=== PATIENT | female | born 1960 | race American Indian/Alaskan Native ===

== ENCOUNTER 2019-08-02 01:51 | Inpatient (IN) | payer MEDICAID ==
[2019-08-02 03:10] LABS: Basophils # (Auto) 0.1 K/mm3 (0.0-0.1); Basophils % (Auto) 0.5 % (0.0-1.8); Eosinophils % (Auto) 0.3 % (0.0-4.3); Hematocrit 34.2 % (30.3-42.9); Hemoglobin 11.5 gm/dl (10.1-14.3); Lymphocytes % (Auto) 19.2 % (13.4-35.0); Mean Corpuscular HGB Conc 34 % (30-34); Mean Corpuscular Volume 105 fl (79-97); Monocytes # (Auto) 0.7 K/mm3 (0.0-0.8); Monocytes % (Auto) 4.3 % (0.0-7.3); Platelet Count 370 K/mm3 (140-440); Red Blood Count 3.26 M/mm3 (3.65-5.03); Red Cell Distribution Width 18.7 % (13.2-15.2)
[2019-08-02 03:35] LABS: Alanine Aminotransferase 22 units/L (7-56); Albumin 3.3 g/dL (3.9-5); BUN/Creatinine Ratio 5; Blood Urea Nitrogen 9 mg/dL (7-17); Hemolysis Index 11
--- NOTE | 2019-08-02 03:35 | XRay Report ---
CHEST 2 VIEWS INDICATION / CLINICAL INFORMATION: Chest Pain. COMPARISON: None available. FINDINGS: SUPPORT DEVICES: None. HEART / MEDIASTINUM: No significant abnormality. LUNGS / PLEURA: No significant pulmonary or pleural abnormality. No pneumothorax. ADDITIONAL FINDINGS: No significant additional findings. IMPRESSION: 1. No acute findings. Signer Name: Cordell Crowell MD Signed: 08/02/2019 3:31 AM Workstation Name: [id number]
[2019-08-02 03:46] LABS: Calcium 4.8 mg/dL (8.4-10.2)
[2019-08-02] MEDS ORDERED: NACL 0.9% 1000 ML 1,000 ML ONE (04:15)
[2019-08-02] MEDS ORDERED: MORPHINE IV ONE (04:26)
[2019-08-02] MEDS ORDERED: K-DUR PO ONE ×2 (04:26→10:30)
[2019-08-02] MEDS ORDERED: CALCIUM GLUCONATE 2,000 MG in NACL 0.9% 100 ML IV ONE (04:26)
[2019-08-02] MEDS ORDERED: ZOFRAN IV ONE (04:26)
[2019-08-02] MEDS ORDERED: MAGNESIUM SULFATE 4GM/100ML 4 GM/100 ML BAG IV ONE (04:26)
[2019-08-02] MEDS ORDERED: TUMS PO ONE (04:26)
[2019-08-02] MEDS ORDERED: PEPCID IV ONE (04:27)
--- NOTE | 2019-08-02 04:32 | Emergency Department Report ---
ED General Adult HPI - General Chief complaint: Chest Pain Stated complaint: CHEST PAIN Time Seen by Provider: 08/02/19 03:13 Source: patient, RN notes reviewed Mode of arrival: Ambulatory Limitations: No Limitations - History of Present Illness Initial comments: This is a pleasant 59-year-old female. This patient is not known to this provider previously. She does not have a local primary care doctor. 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 She endorses a history of Crohn's disease. Was previously treated for Crohn's disease in [facility]. This was over a decade ago. She is not taking any medications at this time. She presents to the ER with a complaint of malaise, fatigue, numbness, weakness, lightheadedness. She endorses constant diarrhea. It is nonbloody. She endorses intermittent nausea and vomiting, and difficulty eating and drinking. After nausea and vomiting, she has central chest pain that radiates to the back. She endorses no urinary symptoms. She denies severe headache. She denies neck pain. The patient endorses no hematemesis or bright red blood per rectum. Symptoms intermittent over the past couple weeks, getting worse, and they don't really have any exacerbating or relieving factors. -: Gradual Location: chest, back, abdomen Severity scale (0 -10): 6 Quality: aching Improves with: other Worsens with: other - Related Data Allergies Allergy/AdvReac Type Severity Reaction Status Date / Time latex Allergy Unknown Verified 08/02/19 01:55 ED Review of Systems ROS: Stated complaint: CHEST PAIN Other details as noted in HPI Constitutional: malaise. denies: fever Eyes: denies: eye discharge, vision change ENT: denies: epistaxis Respiratory: denies: cough, wheezing Cardiovascular: chest pain. denies: syncope Gastrointestinal: abdominal pain, nausea, diarrhea. denies: constipation, hematemesis, melena, hematochezia Genitourinary: denies: dysuria Musculoskeletal: arthralgia, myalgia Skin: denies: lesions Neurological: weakness, numbness, paresthesias ED Past Medical Hx - Past Medical History Previous Medical History?: Yes Hx Renal Disease: Yes Hx Arthritis: Yes (Osteo) Additional medical history: Crohns disease - Surgical History Past Surgical History?: No - Social History Smoking Status: Never Smoker ED Physical Exam - General Limitations: No Limitations General appearance: alert, anxious - Head Head exam: Present: atraumatic, normocephalic - Eye Eye exam: Present: normal appearance, PERRL, EOMI, other (visual acuity intact to color perception and breathing at a close distance). Absent: nystagmus - ENT ENT exam: Present: normal exam, mucous membranes dry, normal external ear exam - Neck Neck exam: Present: normal inspection, full ROM. Absent: tenderness, meningismus - Respiratory Respiratory exam: Present: normal lung sounds bilaterally. Absent: respiratory distress - Cardiovascular Cardiovascular Exam: Present: regular rate, normal rhythm, normal heart sounds. Absent: bradycardia, tachycardia, irregular rhythm, systolic murmur, diastolic murmur, rubs, gallop - GI/Abdominal GI/Abdominal exam: Present: soft. Absent: distended, tenderness, guarding, rebound, rigid, pulsatile mass - Extremities Exam Extremities exam: Present: normal inspection, full ROM, other (2+ pulses noted in the bilateral upper, lower extremities. Compartments soft. No long bony tenderness. The pelvis is stable.). Absent: pedal edema, calf tenderness - Back Exam Back exam: Present: normal inspection, full ROM. Absent: tenderness, CVA tenderness (R), CVA tenderness (L), paraspinal tenderness, vertebral tenderness - Neurological Exam Neurological exam: Present: alert, oriented X3, other (Extraocular movements intact. Tongue midline. No facial droop. Facial sensation intact to light touch in the V1, V2, V3 distribution bilaterally. 5 and 5 strength in 4 extremi ties.. Sensation is intact to light touch in 4 extremities.). Absent: motor sensory deficit - Psychiatric Psychiatric exam: Present: anxious - Skin Skin exam: Present: warm, dry, intact, normal color. Absent: rash ED Course Vital Signs 08/02/19 08/02/19 08/02/19 01:58 02:09 03:37 Temperature 97.6 F 97.6 F 97.7 F Pulse Rate 95 H 95 H 88 Respiratory 16 18 12 Rate Blood Pressure 111/68 111/68 Blood Pressure 98/67 [Left] O2 Sat by Pulse 100 95 100 Oximetry 08/02/19 08/02/19 05:40 05:50 Temperature Pulse Rate 83 86 Respiratory 15 16 Rate Blood Pressure 88/51 78/43 Blood Pressure [Left] O2 Sat by Pulse 100 100 Oximetry - Reevaluation(s) Reevaluation #1: 08/02/19 05:23 Differential diagnosis, including but not limited to: Crohn's disease, Crohn's flare, dysphasia, malnutrition, dehydration, electrolyte derangement, GERD, gastritis Assessment and plan: 59-year-old female with history of Crohn's disease, not on any maintenance medication at this time, with complaint of diarrhea, abdominal cramping, difficulty eating and drinking, with evidence of malnutrition and dehydration, manifest by hypokalemia, hypocalcemia, hypomagnesemia, and poor oral intake. We'll treat her symptoms with pain medication, nausea medication, IV fluids, and we will correct her electrolyte derangement. Reports no DVT or pulmonary embolus risk factors. She is currently not tachycardic or hypoxic, and she is not tachypneic. Chest pain present for days to weeks, mostly associ ated with swallowing, suspect GI etiology. CT scan of the abdomen and pelvis performed. Interpretation pending. Advised patient that we would recommend admission to the hospital for correction of aforementioned derangement, once initial diagnostics have resulted. Patient and family amenable to this plan of care. Reevaluation #2: 08/02/19 05:38 CT scan of the abdomen and pelvis suggests Crohn's disease as expected, no acute surgical condition is identified. Gastroenterology production operator paged, hospitalist physician production operator paged. Reevaluation #3: 08/02/19 06:03 Discussed with gastroenterology, Dr. Nance, who recommends 125 mg Solu-Medrol IV. He indicates he will see the patient within the next couple hours, and make further recommendations. Hospital physician, Dr. Posada, to admit patient to the medical service. - EJ/Peripheral Line Neck L Time Out Performed: Yes Indications: multiple IV sites needed Skin Cleansed in Sterile Fashion: Yes Size: 20 Dressing Placed: Tegaderm Patient Tolerated Procedure: well ED Medical Decision Making - Lab Data Result diagrams: 08/02/19 02:49 08/02/19 02:49 Vital Signs 08/02/19 08/02/19 08/02/19 01:58 02:09 03:37 Temperature 97.6 F 97.6 F 97.7 F Pulse Rate 95 H 95 H 88 Respiratory 16 18 12 Rate Blood Pressure 111/68 111/68 Blood Pressure 98/67 [Left] O2 Sat by Pulse 100 95 100 Oximetry Lab Results 08/02/19 08/02/19 08/02/19 Range/Units 02:49 02:49 03:13 WBC 15.5 H (4.5-11.0) K/mm3 RBC 3.26 L (3.65-5.03) M/mm3 Hgb 11.5 (10.1-14.3) gm/dl Hct 34.2 (30.3-42.9) % MCV 105 H (79-97) fl MCH 35 H (28-32) pg MCHC 34 (30-34) % RDW 18.7 H (13.2-15.2) % Plt Count 370 (140-440) K/mm3 Lymph % (Auto) 19.2 (13.4-35.0) % Wilkes % (Auto) 4.3 (0.0-7.3) % Eos % (Auto) 0.3 (0.0-4.3) % Baso % (Auto) 0.5 (0.0-1.8) % Lymph # 3.0 (1.2-5.4) K/mm3 Wilkes # 0.7 (0.0-0.8) K/mm3 Eos # 0.0 (0.0-0.4) K/mm3 Baso # 0.1 (0.0-0.1) K/mm3 Seg Neutrophils % 75.7 H (40.0-70.0) % Seg Neutrophils # 11.7 H (1.8-7.7) K/mm3 Sodium 136 L (137-145) mmol/L Potassium 2.2 L* (3.6-5.0) mmol/L Chloride 101.1 (98-107) mmol/L Carbon Dioxide 13 L (22-30) mmol/L Anion Gap 24 mmol/L BUN 9 (7-17) mg/dL Creatinine 2.0 H (0.7-1.2) mg/dL Estimated GFR 31 ml/min BUN/Creatinine Ratio 5 % Glucose 85 (65-100) mg/dL Calcium 4.8 L* (8.4-10.2) mg/dL Magnesium 0.60 L* (1.7-2.3) mg/dL Total Bilirubin 0.70 (0.1-1.2) mg/dL AST 35 (5-40) units/L ALT 22 (7-56) units/L Alkaline Phosphatase 111 (35-129) units/L Total Creatine Kinase 1172 H (30-135) units/L Troponin T < 0.010 (0.00-0.029) ng/mL Total Protein 5.9 L (6.3-8.2) g/dL Albumin 3.3 L (3.9-5) g/dL Albumin/Globulin Ratio 1.3 % - EKG Data -: EKG Interpreted by Me EKG shows normal: sinus rhythm Rate: normal - EKG Data When compared to previous EKG there are: previous EKG unavailable 08/02/19 05:22 There is no prior EKG available for comparison. This is a sinus rhythm, 90 bpm, QTC prolonged, motion artifact, low voltage, the EKG is abnormal, the EKG is not consistent with ST elevation myocardial infarction. - Radiology Data Radiology results: pending, report reviewed, image reviewed interpreted by me: X-ray of the chest is negative for acute disease. A chest is negative for acute disease. Referring Physician: CASSIE SANDOVAL Patient Name: SHANEL NANCE Date of : 1960 Sex: Female Report Date: 2019-08-02 Report Status: [place] [address] Cat Scan Report Signed Patient: SHANEL NANCE MR#: [id number] 4 : 1960 Acct:[id number] Age/Sex: 59 / F ADM Date: 08/02/19 Loc: ED Attending Dr: Ordering Physician: CASSIE SANDOVAL MD Date of Service: 08/02/19 Procedure(s): CT abdomen pelvis w con Accession Number(s): [id number] cc: CASSIE SANDOVAL MD CT ABDOMEN AND PELVIS WITH CONTRAST INDICATION: chrones flare abd pain. TECHNIQUE: Axial CT images were obtained through the abdomen and pelvis after 100 cc Omnipaque [address] scans at this location are performed using CT dose reduction for ALARA by means of automated exposure control. COMPARISON: None available. FINDINGS: LOWER CHEST: Mild pulmonary emphysema. Visualized lung bases are otherwise clear. LIVER: Moderate decreased attenuation within liver characteristic for steatosis. GALLBLADDER: Cholelithiasis. BILE DUCTS: No significant abnormality. PANCREAS: No significant abnormality. SPLEEN: No significant abnormality. ADRENALS: No significant abnormality. RIGHT KIDNEY and URETER: No significant abnormality. Tiny 1 cm cyst LEFT KIDNEY and URETER: No significant abnormality. Tiny 1 cm cyst STOMACH and SMALL BOWEL: Several loops of distal small bowel with moderate bowel wall thickening suggestive for Crohn's disease. COLON: Ahaustral appearance of colon with mild diffuse colonic wall thickening with marked wall thickening of transverse colon characteristic for inflammatory bowel disease such as Crohn's. APPENDIX: No significant abnormality. PERITONEUM: No free fluid. No free air. No fluid collection. LYMPH NODES: No significant adenopathy. AORTA and ARTERIES: No significant abnorm ality. IVC and VEINS: No significant abnormality. URINARY BLADDER: No significant abnormality. REPRODUCTIVE ORGANS: Several small partially calcified uterine leiomyomas, largest of which measures 1.7 cm within the right uterine body image 128. ADDITIONAL FINDINGS: None. SKELETAL SYSTEM: Moderate left-sided sacroiliitis. 3. Mild emphysema IMPRESSION: 1. Marked thickening of transverse colon with moderate bowel wall thickening of multiple loops of small bowel and mild colonic wall thickening c haracteristic for inflammatory bowel disease such as Crohn's. No bowel obstruction. 2. Cholelithiasis. 3. Leiomyomatous uterus and moderate steatosis. Signer Name: Cordell Crowell MD Signed: 08/02/2019 5:27 AM Workstation Name: [id number] Transcribed By: TL Dictated By: Cordell Crowell MD Elect ronically Authenticated By: Cordell Crowell MD Signed Date/Time: 08/02/19 0538 Critical Care Time: Yes Critical care time in (mins) excluding proc time.: 35 Critical care attestation.: If time is entered above; I have spent that time in minutes in the direct care of this critically ill patient, excluding procedure time. ED Disposition Clinical Impression: Crohn disease, Hypokalemia, Hypomagnesemia, Hypocalcemia, Myositis, Diarrhea Disposition: OP ADMIT IP TO THIS HOSP Is pt being admited?: Yes Does the pt Need Aspirin: No Condition: Serious Referrals: PRIMARY CARE, [Primary Care Provider] - 3-5 Days Forms: Accompanied Note
[2019-08-02] MEDS ORDERED: NACL 0.9% 1000 ML 1,000 ML IV ONE ×2 (04:44→06:20)
--- NOTE | 2019-08-02 05:32 | Cat Scan Report ---
CT ABDOMEN AND PELVIS WITH CONTRAST INDICATION: chrones flare abd pain. TECHNIQUE: Axial CT images were obtained through the abdomen and pelvis after 100 cc Omnipaque [address] scans at this location are performed using CT dose reduction for ALARA by means of automated exposure control. COMPARISON: None available. FINDINGS: LOWER CHEST: Mild pulmonary emphysema. Visualized lung bases are otherwise clear. LIVER: Moderate decreased attenuation within liver characteristic for steatosis. GALLBLADDER: Cholelithiasis. BILE DUCTS: No significant abnormality. PANCREAS: No significant abnormality. SPLEEN: No significant abnormality. ADRENALS: No significant abnormality. RIGHT KIDNEY and URETER: No significant abnormality. Tiny 1 cm cyst LEFT KIDNEY and URETER: No significant abnormality. Tiny 1 cm cyst STOMACH and SMALL BOWEL: Several loops of distal small bowel with moderate bowel wall thickening sugg estive for Crohn's disease. COLON: Ahaustral appearance of colon with mild diffuse colonic wall thickening with marked wall thick ening of transverse colon characteristic for inflammatory bowel disease such as Crohn's. APPENDIX: No significant abnormality. PERITONEUM: No free fluid. No free air. No fluid collection. LYMPH NODES: No significant adenopathy. AORTA and ARTERIES: No significant abnormality. IVC and VEINS: No significant abnormality. URINARY BLADDER: No significant abnormality. REPRODUCTIVE ORGANS: Several small partially calcified uterine leiomyomas, largest of which measures 1.7 cm within the right uterine body image 128. ADDITIONAL FINDINGS: None. SKELETAL SYSTEM: Moderate left-sided sacroiliitis. 3. Mild emphysema IMPRESSION: 1. Marked thickening of transverse colon with moderate bowel wall thickening of multiple loops of sma ll bowel and mild colonic wall thickening characteristic for inflammatory bowel disease such as Crohn 's. No bowel obstruction. 2. Cholelithiasis. 3. Leiomyomatous uterus and moderate steatosis. Signer Name: Cordell Crowell MD Signed: 08/02/2019 5:27 AM Workstation Name: [id number]
[2019-08-02] MEDS ORDERED: SUBLIMAZE IV ONE (05:40)
[2019-08-02] MEDS ORDERED: NACL 0.9% 1000 ML 2,000 ML IV ONE (05:40)
[2019-08-02] MEDS: KCL 10MEQ/100ML 10 MEQ/100 ML BAG IV SCH ×6 (05:45→18:01)
[2019-08-02] MEDS ORDERED: SOLU-Medrol IV ONE (06:02)
[2019-08-02] MEDS ORDERED: TYLENOL PO PRN (06:16)
[2019-08-02] MEDS ORDERED: ZOFRAN IV PRN (06:16)
[2019-08-02] MEDS ORDERED: SODIUM CHLORIDE FLUSH SYRINGE 10 ML IV PRN (06:16)
--- NOTE | 2019-08-02 06:26 | History and Physical Report ---
History of Present Illness Date of examination: 08/02/19 History of present illness: 59-year-old woman with a history of Crohn's comes emergency room for evaluation. Over the last 3 weeks she has been having diarrhea, 4-5 episodes a day, nonbloody, also complain of generalized weakness, nausea vomiting, numbness and tingling in her hands. No abdominal pain. Also complain of chest pain in the epigastric area 2 weeks which she describes a tightness, intermittent every half an hour, intensity follow 10, radiating to the left underarm, candidate and exacerbating or relieving factors, no previous stress tests, no shortness of breath, diaphoresis or palpitation eview Of Systems: Constitutional: no weight loss, fever, chills Ears, eyes, nose, mouth and throat: no nasal congestion, no nasal discharge, no sinus pressure, blurry vision, diplopia Neck: No neck pain or rigidity. Cardiovascular: No palpitations Respiratory: No shortness of breath, cough Gastrointestinal: No hematochezia, abdominal pain Genitourinary : no dysuria, frequency , hematuria Musculoskeletal: no muscle ache , joint pain Integumentary: no rash, no pruritis Neurological: no parathesias, focal weakness Endocrine: no cold or heat intolerance, no polyuria or polydipsia Hematologic/Lymphatic: no easy bruising, no easy bleeding, no gland swelling Allergic/Immunologic: no urticaria, no angioedema. PAST MEDICAL HISTORY: Crohn's disease PAST SURGICAL HISTORY:part of the gut removed, colostomy with reversal FAMILY HISTORY:hypertension, diabetes SOCIAL HISTORY: Denies tobacco, drugs, alcohol Medications and Allergies Allergies Allergy/AdvReac Type Severity Reaction Status Date / Time latex Allergy Unknown Verified 08/02/19 01:55 Home Medications Medication Instructions Recorded Confirmed Last Taken Type No Known Home Medications [No 08/02/19 08/02/19 Unknown History Reported Home Medications] Active Meds: Active Medications Acetaminophen (Tylenol) 650 mg PO Q4H PRN PRN Reason: Pain MILD(1-3)/Fever >100.5/INFANTE Enoxaparin Sodium (Lovenox) 30 mg SUB-Q QDAY MAGNUS Magnesium Sulfate (Magnesium Sulfate 4gm/100ml) 4 gm in 100 mls @ 25 mls/hr IV ONCE ONE Stop: 08/02/19 08:25 Last Admin: 08/02/19 05:45 Dose: 25 mls/hr Documented by: Potassium Chloride (Kcl 10meq/100ml) 10 meq in 100 mls @ 100 mls/hr IV Q1H MAGNUS Stop: 08/02/19 08:59 Last Admin: 08/02/19 05:45 Dose: 100 mls/hr Documented by: Sodium Chloride (Nacl 0.9% 1000 Ml) 1,000 mls @ 150 mls/hr IV DIRECT MAGNUS Sodium Chloride (Nacl 0.9% 1000 Ml) 1,000 mls @ 999 mls/hr IV ONCE ONE Stop: 08/02/19 07:20 Ondansetron HCl (Zofran) 4 mg IV Q8H PRN PRN Reason: Nausea And Vomiting Oxycodone/Acetaminophen (Percocet 5/325) 1 tab PO Q6H PRN PRN Reason: Pain, Moderate (4-6) Sodium Chloride (Sodium Chloride Flush Syringe 10 Ml) 10 ml IV BID MAGNUS Sodium Chloride (Sodium Chloride Flush Syringe 10 Ml) 10 ml IV PRN PRN PRN Reason: LINE FLUSH Exam - Physical Exam Narrative exam: General Apperance: The patient sitting in bed no acute distress HEENT: Normocephalic, atraumatic. Pupils equally round and reactive to light, extraocular movement intact, and no sclericterus or JVD or thyromegaly or nodule. Neck supple, no carotid bruit, mucous membranes dry, no exudate or e rythema Heart: S1-S2, regular is rhythm Lungs: Clear to auscultation bilaterally, breathing comfortable Abdomen: Positive bowel sounds, soft, nontender, nondistended, no organomegaly Extremities: No edema cyanosis clubbing Skin: no rash, nodule, warm and dry Neuro:CN 2 -12 intact, motor/sensory intact, speech is fluent - Constitutional Vitals: Temp Pulse Resp BP Pulse Ox 97.7 F 86 16 78/43 100 08/02/19 03:37 08/02/19 05:50 08/02/19 05:50 08/02/19 05:50 08/02/19 05:50 Results - Labs CBC & Chem 7: 08/02/19 02:49 08/03/19 06:24 Labs: Abnormal lab results 09/04/19 09/04/19 09/04/19 Range/Units 02:49 02:49 03:13 WBC 15.5 H (4.5-11.0) K/mm3 RBC 3.26 L (3.65-5.03) M/mm3 MCV 105 H (79-97) fl MCH 35 H (28-32) pg RDW 18.7 H (13.2-15.2) % Seg Neutrophils % 75.7 H (40.0-70.0) % Seg Neutrophils # 11.7 H (1.8-7.7) K/mm3 Sodium 136 L (137-145) mmol/L Potassium 2.2 L* (3.6-5.0) mmol/L Carbon Dioxide 13 L (22-30) mmol/L Creatinine 2.0 H (0.7-1.2) mg/dL Calcium 4.8 L* (8.4-10.2) mg/dL Magnesium 0.60 L* (1.7-2.3) mg/dL Total Creatine Kinase 1172 H (30-135) units/L Total Protein 5.9 L (6.3-8.2) g/dL Albumin 3.3 L (3.9-5) g/dL - Imaging and Cardiology CT scan - abdomen: report reviewed CT scan - pelvis: report reviewed Assessment and Plan Assessment cute renal failure Diarrhea Multiple electrolytes abnormalities Hypokalemia Hypomagnesemia Hypokalemia Chest pain Rhabdomyoma lysis Crohn's disease Plan Admit to medicine Follow-up electrolytes, check phosphorus Checkcardiac enzymes, stress test GI consulted to see the patient, recommended one dose of steroid at this time Stool studies, start IV fluid DVT prophylaxis
[2019-08-02 07:51] LABS: Creatine Kinase MB 16.1 ng/mL (0.0-4.0)
[2019-08-02 10:17] LABS: Albumin 2.7 g/dL (3.9-5)
[2019-08-02 10:26] LABS: Calcium 5.2 mg/dL (8.4-10.2)
[2019-08-02] MEDS: LOVENOX SUB-Q SCH (11:22)
[2019-08-02] MEDS: SODIUM CHLORIDE FLUSH SYRINGE 10 ML IV SCH ×2 (11:29→21:40)
[2019-08-02 14:16] LABS: Creatine Kinase MB 18.3 ng/mL (0.0-4.0)
[2019-08-02] MEDS: SOLU-Medrol IV SCH ×2 (16:26→21:40)
--- NOTE | 2019-08-02 16:27 | Event Note ---
Date: 08/02/19 Patient seen and examined 59-year-old woman with a history of Crohn's comes emergency room for evaluation of 3 weeks of diarrhea, 4-5 episodes a day, nonbloody, also complain of generalized weakness, nausea vomiting, numbness and tingling in her hands. Multiple electrolytes abnormalities on blood work. cont to replete elctrolytes, serial BMP c/o difficulty swallowing - consult Speech
[2019-08-02] MEDS: PERCOCET 5/325 PO PRN (16:48)
[2019-08-02] MEDS: NACL 0.9% 1000 ML 1,000 ML IV SCH (19:39)
[2019-08-03] MEDS ORDERED: K-DUR PO ONE (01:19)
--- NOTE | 2019-08-03 02:51 | Consultation ---
REFERRING PHYSICIAN: Lorene Perkins MD. INDICATION: 1. Abdominal pain. 2. Crohn's disease. HISTORY OF PRESENT ILLNESS: The patient is a 59-year-old black female with a history of Crohn's disease, who reportedly has had two surgery with resections of a small bowel in the past with one sounded like a bowel obstruction, now presents for GI evaluation. The patient reports she had a colostomy in the past with reversal about 7 years ago. She reports the last time she was followed by social media analyst was approximately 6 years ago and reports she was on Pentasa and another medicine that she does not recall, but she thinks it was not an immunomodulator. She reports over the last 2-3 weeks, she has been having loose nonbloody stools from her baseline 1-2 to 6-7 as well as abdominal cramping, musculoskeletal pain, and other symptoms. She also reports some epigastric pain. She reports a 12-pound weight loss over recent months. The patient subsequently came to the Emergency Room where she had a CT scan showing signs of Crohn's disease and was admitted and GI consulted. She denies any other specific complaints. PAST MEDICAL HISTORY: Crohn's disease. PAST SURGICAL HISTORY: Reported ostomy in the past, now reversed. ALLERGIES: No known drug allergies. MEDICATIONS: Reviewed and updated in chart. SOCIAL HISTORY: Denies alcohol, tobacco, or drug abuse. FAMILY HISTORY: Negative for colon cancer, IBD, or liver disease. REVIEW OF SYSTEMS: GENERAL: Reports some weakness. HEENT: No visual complaints or tinnitus. PULMONARY: No shortness of breath. No cough. No chest pain. GASTROINTESTINAL: Reports some loose stools and epigastric pain. All points of 13-point review of systems otherwise negative. PHYSICAL EXAMINATION: VITAL SIGNS: Temperature of 98.7, pulse 71, respirations 20, blood pressure 112/63. GENERAL: Fairly thin black female in no acute distress. HEENT: Pupils equal, round and reactive. PULMONARY: Clear to auscultation bilaterally. CARDIOVASCULAR: Regular rhythm. Normal S1, S2. ABDOMEN: Positive bowel sounds, soft. SKIN: No obvious rashes. LABORATORY DATA: Pertinent for white count of 15.5, hemoglobin and hematocrit of 11.5 and 34.2, platelet count of 370. Chem-7 is pertinent for sodium of 136, potassium 2.2, chloride 101, CO2 of 30, BUN and creatinine of 9 and 2, total creatinine of 1172. LFTs within normal limits. CT scan of the abdomen and pelvis showed inflammation in the transverse colon consistent with Crohn's disease as well as cholelithiasis and fibroids. ASSESSMENT AND PLAN: A 59-year-old female with history of Crohn's disease with surgeries in the past and now followed by social media analyst or been on medications for over 6 years, now presents with 2 weeks of weight loss, muscle pain, some mild epigastric pain as well as loose nonbloody stools. Exam with mild abdominal pain. CT scan consistent with Crohn's disease. The patient most likely has Crohn's disease flare. She also has electrolyte abnormalities in rhabdomyolysis. Management is noted below. PLAN: 1. Agree with stool cultures as started by primary team. 2. IV Solu-Medrol with methylprednisone 125 mg IV b.i.d. with plans to decrease over the next 24-48 hours and hopefully get to p.o. 3. Stool cultures as ordered. 4. Antiemetics and pain medications as ordered by primary team. 5. Electrolyte management per primary team. 6. The patient will require colonoscopy and further evaluation management, but would prefer to do as an outpatient as well as to decide on long-term medications. 7. Clear liquid diet. 8. We will follow closely. JOB# [id number] CAB/NTS
[2019-08-03] MEDS ORDERED: POTASSIUM CHLORIDE FEEDTUBE ONE (02:54)
[2019-08-03] MEDS: SOLU-Medrol IV SCH ×2 (06:11→21:22)
[2019-08-03] MEDS: NACL 0.9% 1000 ML 1,000 ML IV SCH ×2 (06:12→08:28)
[2019-08-03] MEDS ORDERED: LEXISCAN IV ONE ×2 (07:08→07:34)
[2019-08-03 07:57] LABS: Calcium 5.1 mg/dL (8.4-10.2)
--- NOTE | 2019-08-03 10:37 | Consultation ---
History of Present Illness Consult date: 08/03/19 Medications and Allergies Allergies Allergy/AdvReac Type Severity Reaction Status Date / Time latex Allergy Unknown Verified 08/02/19 01:55 Home Medications Medication Instructions Recorded Confirmed Last Taken Type No Known Home Medications [No 08/02/19 08/02/19 Unknown History Reported Home Medications] Active Meds: Active Medications Acetaminophen (Tylenol) 650 mg PO Q4H PRN PRN Reason: Pain MILD(1-3)/Fever >100.5/INFANTE Enoxaparin Sodium (Lovenox) 30 mg SUB-Q QDAY [facility] Last Admin: 08/02/19 11:22 Dose: 30 mg Documented by: Sodium Chloride (Nacl 0.9% 1000 Ml) 1,000 mls @ 150 mls/hr IV DIRECT [facility] Last Admin: 08/03/19 08:28 Dose: 150 mls/hr Documented by: Methylprednisolone Sodium Succinate (Solu-Medrol) 40 mg IV Q8HR [facility] Last Admin: 08/03/19 06:11 Dose: 40 mg Documented by: Ondansetron HCl (Zofran) 4 mg IV Q8H PRN PRN Reason: Nausea And Vomiting Oxycodone/Acetaminophen (Percocet 5/325) 1 tab PO Q6H PRN PRN Reason: Pain, Moderate (4-6) Last Admin: 08/02/19 16:48 Dose: 1 tab Documented by: Sodium Chloride (Sodium Chloride Flush Syringe 10 Ml) 10 ml IV BID [facility] Last Admin: 08/02/19 21:40 Dose: 10 ml Documented by: Sodium Chloride (Sodium Chloride Flush Syringe 10 Ml) 10 ml IV PRN PRN PRN Reason: LINE FLUSH Physical Examination Vital Signs Temp Pulse Resp BP Pulse Ox 97.6 F 95 H 16 111/68 100 08/02/19 01:58 08/02/19 01:58 08/02/19 01:58 08/02/19 01:58 08/02/19 01:58 Results 08/02/19 02:49 08/03/19 06:24 Cardiac Enzymes 08/02/19 Range/Units 13:13 CK-MB (CK-2) 18.3 H (0.0-4.0) ng/mL Comprehensive Metabolic Panel 08/02/19 08/03/19 Range/Units 22:55 06:24 Sodium 136 L 136 L (137-145) mmol/L Potassium 3.0 L 3.6 (3.6-5.0) mmol/L Chloride 107.8 H 111.4 H (98-107) mmol/L Carbon Dioxide 9 L* 10 L (22-30) mmol/L BUN 7 8 (7-17) mg/dL Creatinine 1.6 H 1.7 H (0.7-1.2) mg/dL Glucose 169 H 123 H (65-100) mg/dL Calcium 5.0 L* 5.1 L* (8.4-10.2) mg/dL Assessment and Plan Detailed Cardiology consult done.
--- NOTE | 2019-08-03 11:22 | Consultation ---
CARDIOLOGY CONSULTATION REPORT REFERRING PHYSICIAN: Lorene Perkins MD, hospitalist. HISTORY OF PRESENT ILLNESS: A 59-year-old thin built, pleasant -[place] woman with a history of Crohn's disease, who was admitted with a history of loose watery stools for 3-4 days' duration before admission. She also gives a history of lower retrosternal chest pains and also pain in the epigastrium, radiating down to the left inframammary region intermittently for the past 2 weeks. She gives a history of difficulty in swallowing for the past 2 weeks. She was hypokalemic with potassium of 3 and after potassium supplements, her potassium level has come down to 3.6. She was also severely hypocalcemic with calcium level of 5.1 and she has received calcium supplements. CPK was increased to 1238. However, CPK-MB index was negative. Serum troponin was negative. Stool occult blood was negative. She had a CAT scan of the abdomen and pelvis, which revealed evidence of Crohn's disease and also cholelithiasis. Chest x-ray was negative. PAST MEDICAL HISTORY: No history of CAD or myocardial infarction in the past, history of chronic Crohn's disease. She has had small bowel resection surgery for bowel obstruction approximately 7 years ago. She also had a colostomy in the past, which was subsequently closed. No history of hypertension or diabetes mellitus or hyperlipidemia. SOCIAL HISTORY: Not a smoker, not an alcoholic, no history of drug abuse. FAMILY HISTORY: Negative for premature coronary artery disease; however, there is family history of hypertension and diabetes mellitus. ALLERGIES: None known. MEDICATIONS: Potassium supplements, calcium supplements, intravenous fluids and intravenous methylprednisolone 40 mg every 8 hours. REVIEW OF SYSTEMS: CARDIOVASCULAR SYSTEM: As described in the history. PULMONARY: The patient also gives history of shortness of breath on moderate exertion. GASTROINTESTINAL SYSTEM: As described in the history. BONE AND JOINTS: Negative. METABOLISM AND ENDOCRINOLOGY: Hypocalcemia. NEUROLOGICAL: Negative. Review of rest of the 10 systems is negative. ADDENDUM: The patient also has had nausea, dizziness, and severe fatigue. PHYSICAL EXAMINATION: GENERAL: A 59-year-old thin built, pleasant -[place] woman seen in the stress lab, not in distress. HEENT: Negative. VITAL SIGNS: She is afebrile, pulse 61 per minute, blood pressure 96/54 mmHg, respirations 16 per minute. NEUROLOGIC: She is alert and oriented x 3. NECK: Supple, no JVD, no bruit, no thyromegaly. HEART: PMI located in the normal position. Auscultation of heart reveals S1, S2 heard. Grade 2/6 harsh ejection systolic murmur is heard throughout the precardium, more prominent over the base, no S3 or S4 gallop, no rub. LUNGS: Bilateral air entry good and equal. No bronchial breathing. No wheezing. ABDOMEN: Soft, benign. EXTREMITIES: Peripheral pulses felt. No edema. SKIN: Negative. LABORATORY DATA: As described in the history. WBC 15.5, hemoglobin and hematocrit 11.5 and 34.2 respectively, platelet count normal. BUN 8, creatinine 1.7, sodium 136, chloride 111, CO2 of 18. EKG, normal sinus rhythm and mild nonspecific ST changes and PVCs. IMPRESSION: 1. Recurrent chest pains, myocardial infarction ruled out. 2. History of abdominal pain. 3. History of diarrhea secondary to chronic Crohn's disease. 4. Electrolyte abnormalities - hypokalemia and hypocalcemia. 5. Mild anemia. 6. Chronic kidney disease with creatinine 1.7. 7. History of small bowel resection surgery in the past. 8. History of colostomy in the past. RECOMMENDATIONS: The patient had Lexiscan stress. She did not have any chest pain. There was no evidence of ischemia on the EKG. The myocardial perfusion scan will be followed up. Further management as per admitting doctor on GI. Thanking you, we will follow. Yours sincerely, JOB# [id number] [facility]/[place]
[2019-08-03] MEDS: LOVENOX SUB-Q SCH (11:47)
[2019-08-03] MEDS: SODIUM CHLORIDE FLUSH SYRINGE 10 ML IV SCH (11:48)
--- NOTE | 2019-08-03 14:35 | Progress Note ---
Assessment and Plan Acute renal failure due to vasomotor nephropathy vs possible ckd - cont iv fluid, follow renal US Diarrhea due to Crohn's disease Crohn's disease flair - GI consulted to see the patient, cont steroid at this time - ordered Stool studies, cont IV fluid hyponatremia Hypokalemia Hypomagnesemia Hypocalcemia - cont to replete electrolytes and monitor - due to GI loss, cont iv fluid Chest pain, atypical - likley GERD, stress test normal Rhabdomyolysis, non traumatic - cont iv fluid , trend CPK Moderate PCM - likely from underlying Crohn's disease - dietary recommendation DVT prophylaxis, SCD Subjective Date of service: 08/03/19 Interval history: patient seen and examined states she still has diarrhea N/V improved, still has crampy abdominal pain denies chest pain Objective - Constitutional Vitals: Vital Signs - 12hr 08/03/19 08/03/19 08/03/19 03:39 08:00 08:10 Temperature 97.5 F L 97.3 F L Pulse Rate 65 61 61 Respiratory 18 14 Rate Blood Pressure 100/63 96/54 O2 Sat by Pulse 100 100 Oximetry 08/03/19 08/03/19 08/03/19 09:39 09:41 09:42 Temperature Pulse Rate Respiratory Rate Blood Pressure 99/60 106/58 103/64 O2 Sat by Pulse Oximetry 08/03/19 08/03/19 08/03/19 09:43 09:44 09:47 Temperature Pulse Rate Respiratory Rate Blood Pressure 109/63 114/62 108/52 O2 Sat by Pulse Oximetry 08/03/19 08/03/19 09:48 09:50 Temperature Pulse Rate Respiratory Rate Blood Pressure 101/55 101/59 O2 Sat by Pulse Oximetry General appearance: Present: no acute distress - EENT Eyes: PERRL, EOM intact ENT: hearing intact, clear oral mucosa Ears: bilateral: normal - Neck Neck: supple, normal ROM - Respiratory Respiratory effort: normal Respiratory: bilateral: CTA - Cardiovascular Rhythm: regular Heart Sounds: Present: S1 & S2. Absent: gallop, rub Extremities: pulses intact, No edema, normal color, Full ROM - Gastrointestinal General gastrointestinal: Present: soft, non-tender, non-distended, normal bowel sounds - Integumentary Integumentary: clear, warm, dry - Musculoskeletal Musculoskeletal: 1, strength equal bilaterally - Neurologic Neurologic: moves all extremities - Psychiatric Psychiatric: memory intact, appropriate mood/affect, intact judgment & insight - Labs CBC & Chem 7: 08/04/19 09:21 08/04/19 09:21 Labs: Abnormal lab results 08/02/19 08/02/19 08/03/19 Range/Units 17:00 22:55 06:24 Sodium 136 L 136 L (137-145) mmol/L Potassium 3.0 L (3.6-5.0) mmol/L Chloride 107.8 H 111.4 H (98-107) mmol/L Carbon Dioxide 9 L* 10 L (22-30) mmol/L Creatinine 1.6 H 1.7 H (0.7-1.2) mg/dL Glucose 169 H 123 H (65-100) mg/dL POC Glucose 163 H (70-105) Calcium 5.0 L* 5.1 L* (8.4-10.2) mg/dL Total Creatine Kinase (30-135) units/L 08/03/19 Range/Units 11:22 Sodium (137-145) mmol/L Potassium (3.6-5.0) mmol/L Chloride (98-107) mmol/L Carbon Dioxide (22-30) mmol/L Creatinine (0.7-1.2) mg/dL Glucose (65-100) mg/dL POC Glucose (70-105) Calcium (8.4-10.2) mg/dL Total Creatine Kinase 1178 H (30-135) units/L
[2019-08-03] MEDS ORDERED: CALCIUM GLUCONATE 2,000 MG in NACL 0.9% 100 ML IV ONE (15:30)
--- NOTE | 2019-08-03 16:51 | Ultrasound Report ---
ULTRASOUND RENAL INDICATION: CKD. COMPARISON: No relevant prior imaging study available. FINDINGS: RIGHT KIDNEY: Size: 9.6 cm. Echogenicity: Normal. Cortical thickness: Normal. Hydronephrosis: None. Cyst or mass: Several small renal cysts are seen. Stones: 4 mm stone in the lower pole which is nono bstructing.. LEFT KIDNEY: Size: 8.1 cm. Echogenicity: Moderately increased. Cortical thickness: Thinned. Hydronephrosis: None. Cyst or mass: Several small left renal cysts are seen as well.. Stones: None. Urinary Bladder: No significant abnormality. Free Fluid: None. Additional Findings: None. IMPRESSION 1. Small renal cysts with right renal stone. There is slight to moderate left renal atrophy.. Signer Name: Bruno Elias MD Signed: 08/03/2019 4:46 PM Workstation Name: [id number]
--- NOTE | 2019-08-03 17:36 | Gastroenterology Progress Note ---
Assessment and Plan GI: pt w/ signs improving Crohn's disease - tolerating diet, advance as needed - would switch to po prednisone in am and taper as outpt - will require colonoscopy and lobsterman management as outpt - if stable in am ok to d/c from GI stand point Subjective Date of service: 08/03/19 Interval history: - feels much better, tolerating po Objective - Constitutional Vitals: Temp Pulse Resp BP Pulse Ox 97.3 F L 61 14 101/59 100 08/03/19 08:10 08/03/19 08:10 08/03/19 08:10 08/03/19 09:50 08/03/19 08:10 General appearance: no acute distress - EENT Eyes: PERRL - Respiratory Respiratory: bilateral: CTA - Cardiovascular Rhythm: regular Heart Sounds: Present: S1 & S2 - Gastrointestinal General gastrointestinal: Present: soft, non-tender, non-distended - Labs CBC & Chem 7: 08/02/19 02:49 08/03/19 06:24 Labs: Laboratory Results - last 24 hr 08/02/19 08/02/19 08/03/19 17:00 22:55 06:24 Sodium 136 L Potassium 3.0 L Chloride 107.8 H Carbon Dioxide 9 L* Anion Gap 23 BUN 7 Creatinine 1.6 H Estimated GFR 40 BUN/Creatinine Ratio 4 Glucose 169 H POC Glucose 163 H Calcium 5.0 L* Total Creatine Kinase C-Reactive Protein 0.30 08/03/19 08/03/19 06:24 11:22 Sodium 136 L Potassium 3.6 Chloride 111.4 H Carbon Dioxide 10 L Anion Gap 18 BUN 8 Creatinine 1.7 H Estimated GFR 37 BUN/Creatinine Ratio 5 Glucose 123 H POC Glucose Calcium 5.1 L* Total Creatine Kinase 1178 H C-Reactive Protein
[2019-08-03] MEDS: PERCOCET 5/325 PO PRN (21:21)
--- NOTE | 2019-08-04 00:16 | Treadmill Report ---
SINGLE ISOTOPE DUAL STUDY MYOCARDIAL PERFUSION SCAN AGE: 59. SEX: Female. REFERRING PHYSICIAN: Dr. Perkins. DESCRIPTION OF PROCEDURE: The patient received 10 mCi of technetium 99m Myoview intravenously under resting conditions. Resting myocardial perfusion scan was done. Subsequently, the patient underwent Lexiscan stress test as per the protocol. During Lexiscan stress, the patient received 0.4 mg of Lexiscan intravenously.28 mci of technetium 99 M was given intravenously. After 30-60 minutes, post stress images were done. Computerized reconstruction images were performed for analysis. The post-stress images did not reveal any perfusion abnormality. Gated study did not reveal any wall motion abnormality. The left ventricle was hyperdynamic, and LVEF was calculated to be 77%. The resting images were also normal. CONCLUSIONS: 1. No perfusion abnormality of the left ventricular myocardium was demonstrated in the resting as well as stress images obtained after the patient underwent Lexiscan stress test. 2. No wall motion abnormality. 3. Hyperdynamic left ventricle with the LVEF of 77%. JOB# [id number] [facility]/[place] [facility]
[2019-08-04] MEDS: SOLU-Medrol IV SCH (05:14)
[2019-08-04 10:06] LABS: Hematocrit 31.7 % (30.3-42.9); Hemoglobin 10.3 gm/dl (10.1-14.3); Mean Corpuscular HGB Conc 33 % (30-34); Mean Corpuscular Volume 107 fl (79-97); Platelet Count 289 K/mm3 (140-440); Red Blood Count 2.97 M/mm3 (3.65-5.03); Red Cell Distribution Width 18.9 % (13.2-15.2)
--- NOTE | 2019-08-04 10:21 | Progress Note ---
Assessment and Plan S/p lexiscan MPI stress test yesterday which was negative. Pt reports resolution of chest pain. BMP and Mg pending. Currently stable cardiac status. Pending electrolytes are WNL, pt may discharge home from cardiology standpoint. Recommend follow up in our office with Dr. Dupree within 1-2 weeks of hospital discharge ([phone]). The patient has been seen in conjunction with Dr. Dupree who agrees with the assessment and plan of care. - Patient Problems (1) Chest pain Current Visit: Yes Status: Resolved (2) Abdominal pain Current Visit: Yes Status: Acute (3) Crohn disease Current Visit: Yes Status: Chronic (4) Diarrhea Current Visit: Yes Status: Acute (5) History of colostomy Current Visit: Yes Status: Chronic (6) CKD (chronic kidney disease) Current Visit: Yes Status: Chronic (7) Hypokalemia Current Visit: Yes Status: Acute (8) Hypomagnesemia Current Visit: Yes Status: Acute Subjective Date of service: 08/04/19 Principal diagnosis: Chron's disease; cp Interval history: pt resting in bed, no current cardiac complaints, in SR on tele with [employer] [facility]. Objective Last Vital Signs Temp 98.0 F 08/04/19 08:27 Pulse 62 08/04/19 08:27 Resp 18 08/04/19 08:27 BP 98/53 08/04/19 08:27 Pulse Ox 100 08/04/19 08:27 - Physical Examination General: No Apparent Distress HEENT: Positive: PERRL, Normocephaly, Mucus Membranes Moist Neck: Positive: neck supple, trachea midline Cardiac: Positive: Reg Rate and Rhythm, S1/S2 Lungs: Positive: Decreased Breath Sounds Neuro: Positive: Grossly Intact Abdomen: Positive: Active Bowel Sounds Skin: Negative: Rash Musculoskeletal: No Pain Extremities: Absent: edema - Labs and Meds CBC 08/04/19 Range/Units 09:21 WBC 27.8 H (4.5-11.0) K/mm3 RBC 2.97 L (3.65-5.03) M/mm3 Hgb 10.3 (10.1-14.3) gm/dl Hct 31.7 (30.3-42.9) % Plt Count 289 (140-440) K/mm3 - Imaging and Cardiology EKG: report reviewed, image reviewed Pharmacologic stress test: report reviewed - Telemetry EKG Rhythm: Sinus Rhythm
[2019-08-04] MEDS: SODIUM CHLORIDE FLUSH SYRINGE 10 ML IV SCH (10:26)
[2019-08-04] MEDS: PERCOCET 5/325 PO PRN (10:30)
[2019-08-04] MEDS: NACL 0.9% 1000 ML 1,000 ML IV SCH (10:30)
[2019-08-04 10:48] LABS: Calcium 5.6 mg/dL (8.4-10.2)
[2019-08-04] MEDS ORDERED: DELTASONE PO SCH (11:00)
[2019-08-04] MEDS ORDERED: K-DUR PO SCH (11:00)
--- NOTE | 2019-08-04 11:31 | Discharge Summary ---
Providers - Providers Date of Admission: 08/02/19 08:14 Date of discharge: 08/04/19 Attending physician: TRACIE AGUIRRE 08/02/19 04:26 Consult to Physician [CONS] Urgent Comment: Dr. Meza spoke with Dr. Nance, C @ 0601 Consulting Provider: NATHANAEL MULLINS Physician Instructions: Reason For Exam: chrones flare 08/02/19 16:28 Consult to Physician [CONS] Routine Comment: Consulting Provider: LIANNA PAUL Physician Instructions: Reason For Exam: chest pain Speech Therapy Evaluation and Treat [CONS] Routine Reason For Exam: difficulty swallowing Primary care physician: OSTEOLOGIST Hospitalization Condition: Serious Hospital course: Discharge diagnosis: Leukocytosis, reactive from underlying inflammatory process. Acute renal failure due to vasomotor nephropathy vs possible ckd - cont iv fluid, follow renal US Diarrhea due to Crohn's disease Crohn's disease flair - GI consulted to see the patient, cont steroid at this time - ordered Stool studies, cont IV fluid hyponatremia Hypokalemia Hypomagnesemia Hypocalcemia - cont to replete electrolytes and monitor - due to GI loss, cont iv fluid Chest pain, atypical - likley GERD, stress test normal Rhabdomyolysis, non traumatic - cont iv fluid , trend CPK Moderate PCM - likely from underlying Crohn's disease - dietary recommendation DVT prophylaxis, SCD Disposition: DC- TO HOME OR SELFCARE Time spent for discharge: 34 minutes Core Measure Documentation - Palliative Care Palliative Care/ Comfort Measures: Not Applicable - Core Measures Any of the following diagnoses?: none Exam - Constitutional Vitals: Temp Pulse Resp BP Pulse Ox 98.0 F 62 18 98/53 100 08/04/19 08:27 08/04/19 08:27 08/04/19 08:27 08/04/19 08:27 08/04/19 08:27 General appearance: Present: no acute distress - EENT Eyes: Present: PERRL ENT: hearing intact, clear oral mucosa - Neck Neck: Present: supple, normal ROM - Respiratory Respiratory effort: normal Respiratory: bilateral: CTA - Cardiovascular Heart Sounds: Present: S1 & S2. Absent: rub, click - Extremities Extremities: pulses symmetrical, No edema Peripheral Pulses: within normal limits - Abdominal General gastrointestinal: Present: soft, non-tender, non-distended, normal bowel sounds - Integumentary Integumentary: Present: clear, warm, dry - Musculoskeletal Musculoskeletal: gait normal, strength equal bilaterally - Psychiatric Psychiatric: appropriate mood/affect, intact judgment & insight - Neurologic Neurologic: CNII-XII intact, moves all extremities Plan Activity: advance as tolerated Weight Bearing Status: Weight Bear as Tolerated Diet: advance as tolerated Follow up with: PRIMARY CARE, [Primary Care Provider] - 3-5 Days Forms: Accompanied Note Prescriptions: Calcium Carbonate/Vitamin D3 [Calcium 500 mg-Vit D3 600 Unit] 1 each PO DAILY #30 tablet predniSONE [Deltasone] 40 mg PO QDAY #7 tablet Potassium Chloride [K-Dur] 20 meq PO BID #7 tablet Pantoprazole [Protonix TAB] 40 mg PO QDAY #30 tablet
[2019-08-04] MEDS ORDERED: PROTONIX PO SCH (12:00)
[2019-08-04] MEDS: LOVENOX SUB-Q SCH (12:30)
[2019-08-04] MEDS ORDERED: MAGNESIUM SULFATE 2GM/50ML 2 GM/50 ML BAG IV ONE (14:00)
[2019-08-04] MEDS ORDERED: CALCIUM GLUCONATE 2,000 MG in NACL 0.9% 100 ML IV ONE (14:00)
--- NOTE | 2019-08-04 15:16 | Gastroenterology Progress Note ---
Assessment and Plan GI: stable overnight, tolerating po - switch to po prednisone and taper as outpt - f/u clinic 2 weeks - ok to dc from GI standpoint, will; sign off Subjective Date of service: 08/04/19 Principal diagnosis: Chron's disease; cp Interval history: - feels good, tolerating po Objective - Constitutional Vitals: Temp Pulse Resp BP Pulse Ox 97.9 F 64 18 99/54 100 08/04/19 12:06 08/04/19 12:06 08/04/19 12:06 08/04/19 12:06 08/04/19 12:06 General appearance: no acute distress - EENT Eyes: PERRL - Respiratory Respiratory: bilateral: CTA - Cardiovascular Rhythm: regular Heart Sounds: Present: S1 & S2 - Gastrointestinal General gastrointestinal: Present: soft, non-tender, non-distended - Labs CBC & Chem 7: 08/04/19 09:21 08/04/19 09:21 Labs: Laboratory Results - last 24 hr 08/04/19 08/04/19 08/04/19 09:21 09:21 10:22 WBC 27.8 H RBC 2.97 L Hgb 10.3 Hct 31.7 MCV 107 H MCH 35 H MCHC 33 RDW 18.9 H Plt Count 289 Sodium 138 Potassium 3.3 L Chloride 110.8 H Carbon Dioxide 10 L Anion Gap 21 BUN 6 L Creatinine 1.6 H Estimated GFR 40 BUN/Creatinine Ratio 4 Glucose 103 H Calcium 5.6 L* Magnesium 1.40 L
[2019-08-04 19:56] VITALS: BP 118/62
== END 2019-08-04 21:06 | disposition home health service (06) | DRG 385 ==
LOC: ED 01:51 → SUATTDRO 01:51 → 4A 08:14
PROVIDERS: ADMIT Internal Medicine; ATTEND Internal Medicine
DX: K50.90 Crohn's disease, unspecified, without complications (principal); N17.0 Acute kidney failure with tubular necrosis; E87.6 Hypokalemia; E83.42 Hypomagnesemia; E83.51 Hypocalcemia; D72.829 Elevated white blood cell count, unspecified; E44.0 Moderate protein-calorie malnutrition; N18.9 Chronic kidney disease, unspecified; E87.1 Hypo-osmolality and hyponatremia; K21.9 Gastro-esophageal reflux disease without esophagitis; M62.82 Rhabdomyolysis; E87.8 Other disorders of electrolyte and fluid balance, not elsewhere classified; M19.90 Unspecified osteoarthritis, unspecified site; M60.9 Myositis, unspecified; D64.9 Anemia, unspecified; Z68.1 Body mass index [BMI] 19.9 or less, adult; Z93.3 Colostomy status; Z91.040 Latex allergy status; Z82.49 Family history of ischemic heart disease and other diseases of the circulatory system; Z83.3 Family history of diabetes mellitus
CPT/HCPCS: 36415; 71046; 74177; 76770; 78452; 80048; 80053; 82270; 82330; 82550; 82553; 82962; 83735; 84100; 84484; 85007; 85025; 85027; 86140; 86671; 87045; 93005; 93010; 93017; 96361; 96365; 96375; G0378; A9502; J0610; J1650; J2405; J2785; J2920; J2930; J3010; J3475; J3480; J7030; J7512; Q9967

== ENCOUNTER 2020-09-18 07:49 | Outpatient (CLI) | payer MEDICAID ==
--- NOTE | 2020-09-18 09:08 | Ultrasound Report ---
LIMITED RUQ ABDOMINAL ULTRASOUND INDICATION: GALLSTONES. COMPARISON: CT abdomen/pelvis from 08/02/2019. FINDINGS: Pancreas: Visualized portions show no significant abnormality. Abdominal Aorta: No significant abnormality. IVC: No significant abnormality. Liver: The liver measures 11.4 cm in length. Slightly heterogeneous parenchyma but no discrete mass. Normal hepatopedal blood flow in the main portal vein. Gallbladder: There is a single gallstone lying dependently in the gallbladder, similar to the CT exam . No wall thickening or pericholecystic fluid. Bile ducts: No significant abnormality. Common bile duct measures 1 mm. Right kidney: No significant abnormality visualized.. Free fluid: None. Additional Findings: None. IMPRESSION: 1. Cholelithiasis without cholecystitis. 2. Slightly heterogeneous hepatic parenchyma but no discrete mass identified and normal size. Signer Name: Oumar Shell MD Signed: 09/18/2020 9:03 AM Workstation Name: [id number]
== END 2020-09-18 07:50 | disposition home or self-care (01) ==
LOC: US 07:49
DX: K80.20 Calculus of gallbladder without cholecystitis without obstruction (principal); R10.11 Right upper quadrant pain
CPT/HCPCS: 76705

== ENCOUNTER 2020-09-20 07:34 | Day surgery (SDC) | payer MEDICAID ==
[~2020-09-20 07:34] MED LIST: SODIUM CHLORIDE 0.9% 1000 ML 1,000 ML IV SCH
--- NOTE | 2020-09-20 08:41 | Anesthesia Consultation ---
Anesthesia Consult and Med Hx Date of service: 09/20/20 - Airway Anesthetic Teeth Evaluation: Good ROM Head & Neck: Adequate Mental/Hyoid Distance: Adequate Mallampati Class: Class II Intubation Access Assessment: Probably Good - Pulmonary Exam CTA: Yes - Cardiac Exam Cardiac Exam: RRR - Pre-Operative Health Status ASA Pre-Surgery Classification: ASA3 Proposed Anesthetic Plan: MAC - Pulmonary Hx Smoking: Yes (former smoker; quit 8yrs) Hx Respiratory Symptoms: No - Cardiovascular System Hx Hypertension: No Hx Heart Attack/AMI: No Hx Percutaneous Transluminal Coronary Angioplasty (PTCA): No - Central Nervous System CVA: No - Endocrine Hx Renal Disease: Yes (CKD) Hx Liver Disease: No Hx Insulin Dependent Diabetes: No Hx Non-Insulin Dependent Diabetes: No Hx Thyroid Disease: No - Other Systems Hx Obesity: No - Additional Comments Anesthesia Medical History Comments: Hx Crohn's disease s/p colectomy w/ subsequent colostomy reversal. No hx anesthetic complications.
--- NOTE | 2020-09-20 08:41 | Anesthesia Day of Surgery ---
Anesthesia Day of Surgery - Day of Surgery Patient Examined: Yes Patient H&P Reviewed: Yes Patient is NPO: Yes
[2020-09-20] MEDS ORDERED: propofoL 200 MG/20 ML VIAL IV ONE ×2 (09:37→10:03)
--- NOTE | 2020-09-20 10:19 | Procedure Note ---
Date of procedure: 09/20/20 Pre-op diagnosis: Abdominal Pain/ H/O Crohn's Disease/ H/O Partial colon Resection Post-op diagnosis: other (Normal colon Mucosa/ Partial, Colon Resection/ Biopsy to r/ Microscopic Colitis) Procedure: Colonoscopy with Biopsy Anesthesia: MAC Surgeon: EVIE BURROWS Estimated blood loss: minimal Pathology: list Specimen disposition: to lab Condition: stable Disposition: same day (Avoid aspirin and NSAID for 5 days; resume home medication and follow up in 1 to 2 weeks ([phone]).)
--- NOTE | 2020-09-20 10:38 | Operative Report ---
PROCEDURE: Colonoscopy. INDICATIONS: This is a 60-year-old -[place] female who has a prior history of Crohn's disease. Lately, she has been having some abdominal pain and discomfort. Colonoscopy was done to make sure there was not any recurrence of any Crohn's disease. DESCRIPTION OF PROCEDURE: The procedure was done after getting informed consent with MAC anesthesia. Initial rectal exam was unremarkable. The patient has a prior history of partial colon resection. The instrument was passed through the rectum onto the proximal colon. There were possibly some surgical changes there. The terminal ileum area was not properly seen. Random biopsies were done from the proximal colon, and other additional random biopsy was done from throughout the colon to assess for any microscopic colitis or underlying Crohn's disease endoscopically. The patient did not appear to have evidence of Crohn's disease. There was minimal bleeding associated with the procedure. No complications associated with the procedure. ASSESSMENT: Abdominal pain, history of Crohn's disease, history of partial colon resection, status post colon resection involving the proximal colon, normal colon mucosa, minor internal hemorrhoid. PLAN: To have the patient to avoid aspirin and aspirin-related products for the next few days. Resume home medication. Follow up in the office in 1-2 weeks' time and to do further treatment adjustments according to the biopsy findings. Procedure was done in the GI lab with assistance of the GI lab team, which included Diana BRAXTON and with Alistair Rivera with assistance of anesthesia. [facility]# [id number] [facility]/[place]
[2020-09-20 10:55] VITALS: BP 140/74
--- NOTE | 2020-09-20 11:31 | Post Anesthesia Evaluation ---
- Post Anesthesia Evaluation Patient Participated: Yes Airway Patent: Yes Stable Respiratory Function: Yes Nausea/Vomiting: No Temp > 96.8F: Yes Pain Manageable: Yes Adequeate Hydration: Yes Anesthesia Complications: No
== END 2020-09-20 11:05 | disposition home or self-care (01) ==
LOC: GIO 07:34
DX: R10.9 Unspecified abdominal pain (principal); R14.0 Abdominal distension (gaseous); R19.7 Diarrhea, unspecified; K64.8 Other hemorrhoids; K63.89 Other specified diseases of intestine; K50.90 Crohn's disease, unspecified, without complications; I12.9 Hypertensive chronic kidney disease with stage 1 through stage 4 chronic kidney disease, or unspecified chronic kidney disease; N18.9 Chronic kidney disease, unspecified; M19.90 Unspecified osteoarthritis, unspecified site; Z98.890 Other specified postprocedural states; Z79.899 Other long term (current) drug therapy; Z87.891 Personal history of nicotine dependence; Z91.040 Latex allergy status; Z93.3 Colostomy status
CPT/HCPCS: 45380; 88305; J2704; J7030

== ENCOUNTER 2020-11-11 14:03 | Emergency (ER) | payer MEDICAID ==
[2020-11-11 14:19] VITALS: BP 171/60
--- NOTE | 2020-11-11 14:34 | Event Note ---
ED Screening Note ED Screening Note: RUQ abd pain that began a week ago +nausea no vomiting no fever +odor to urine no dysuria PMHx chrons, gallstones states she believes its her gallstones This initial assessment/diagnostic orders/clinical plan/treatment(s) is/are subject to change based on patients health status, clinical progression and re- assessment by fellow clinical providers in the ED. Further treatment and workup at subsequent clinical providers discretion. Patient/guardian urged not to elope from the ED as their condition may be serious if not clinically assessed and managed. Initial orders include: labs, ua, US
--- NOTE | 2020-11-11 16:08 | Ultrasound Report ---
ULTRASOUND ABDOMEN, LIMITED (RIGHT UPPER QUADRANT) INDICATION / CLINICAL INFORMATION: RUQ pain, hx of gallstones. COMPARISON: 09/18/2020. FINDINGS: PANCREAS: Visualized portion shows no significant abnormality. LIVER: No significant abnormality. The liver measures 12.3 cm in length. GALLBLADDER: Multiple echogenic, shadowing foci are seen within the gallbladder compatible with stone s. BILE DUCTS: No significant abnormality. Common bile duct measures 8.5 mm. FREE FLUID: None. ADDITIONAL FINDINGS: None. IMPRESSION: 1. Uncomplicated cholelithiasis with slightly thickened gallbladder wall. If there is concern for cho lecystitis, consider nuclear medicine hepatobiliary scan for further evaluation. Signer Name: Indio Smith MD Signed: 11/11/2020 4:04 PM Workstation Name: [id number]
[2020-11-11 16:28] LABS: Bacteria,Urine 1+ /HPF (Negative); Bilirubin,Urine NEG (Negative); Blood,Urine NEG (Negative); Color,Urine Straw (Yellow); Mucus,Urine FEW /HPF; Protein,Urine <15 mg/dL mg/dL (Negative); Urobilinogen,Urine < 2.0 mg/dL (<2.0)
[2020-11-11 16:54] LABS: Basophils # (Auto) 0.1 K/mm3 (0.0-0.1); Basophils % (Auto) 0.8 % (0.0-1.8); Eosinophils # (Auto) 0.5 K/mm3 (0.0-0.4); Eosinophils % (Auto) 4.1 % (0.0-4.3); Hematocrit 38.2 % (30.3-42.9); Hemoglobin 12.6 gm/dl (10.1-14.3); Lymphocytes # (Auto) 2.6 K/mm3 (1.2-5.4); Lymphocytes % (Auto) 23.2 % (13.4-35.0); Mean Corpuscular HGB Conc 33 % (30-34); Mean Corpuscular Volume 89 fl (79-97); Monocytes # (Auto) 0.9 K/mm3 (0.0-0.8); Monocytes % (Auto) 7.8 % (0.0-7.3); Platelet Count 322 K/mm3 (140-440); Red Blood Count 4.29 M/mm3 (3.65-5.03); Red Cell Distribution Width 14.5 % (13.2-15.2)
[2020-11-11 17:15] LABS: Albumin 3.8 g/dL (3.9-5); Calcium 8.9 mg/dL (8.4-10.2)
--- NOTE | 2020-11-11 17:55 | Emergency Department Report ---
ED General Adult HPI - General Chief complaint: Urogenital-Female Stated complaint: STOMACH PAIN/DOC SENT Time Seen by Provider: 11/11/20 14:32 Source: patient Mode of arrival: Wheelchair Limitations: No Limitations - History of Present Illness Initial comments: 60-year-old -[place] female presents emergency department complaining of a couple day history of right flank pain associated with some some dysuria but she is worried about having gallstones or gallbladder issue. She reports having some nausea but no vomiting or diarrhea no hematemesis hematochezia no fevers, chills, sweats has been having some increased urinary urgency and increased urinary frequency but no hematuria. Radiation: non-radiation Quality: burning, aching Consistency: constant Improves with: none Worsens with: none Associated Symptoms: denies other symptoms. denies: chest pain, cough, loss of appetite, malaise, shortness of breath, syncope Treatments Prior to Arrival: none - Related Data Previous Rx's Medication Instructions Recorded Last Taken Type Calcium Carbonate/Vitamin D3 1 each PO DAILY #30 tablet 08/04/19 Unknown Rx [Calcium 500 mg-Vit D3 600 Unit] Pantoprazole [Protonix TAB] 40 mg PO QDAY #30 tablet 08/04/19 Unknown Rx Potassium Chloride [K-Dur] 20 meq PO BID #7 tablet 08/04/19 Unknown Rx predniSONE [Deltasone] 40 mg PO QDAY #7 tablet 08/04/19 Unknown Rx Ciprofloxacin HCl [Ciprofloxacin 500 mg PO Q12HR #20 tab 11/11/20 Unknown Rx TAB] Allergies Allergy/AdvReac Type Severity Reaction Status Date / Time latex Allergy Unknown Verified 08/02/19 01:55 ED Review of Systems ROS: Stated complaint: STOMACH PAIN/DOC SENT Other details as noted in HPI Comment: All other systems reviewed and negative ED Past Medical Hx - Past Medical History Previous Medical History?: Yes Hx Hypertension: No Hx Heart Attack/AMI: No Hx Congestive Heart Failure: No Hx Diabetes: No Hx Liver Disease: No Hx Renal Disease: Yes (CKD) Hx Arthritis: Yes (Osteo) Hx Asthma: No Hx COPD: No Additional medical history: Crohns disease - Social History Smoking Status: Former Smoker - Medications Home Medications: Home Medications Medication Instructions Recorded Confirmed Last Taken Type Calcium Carbonate/Vitamin D3 1 each PO DAILY #30 tablet 08/04/19 Unknown Rx [Calcium 500 mg-Vit D3 600 Unit] Pantoprazole [Protonix TAB] 40 mg PO QDAY #30 tablet 08/04/19 Unknown Rx Potassium Chloride [K-Dur] 20 meq PO BID #7 tablet 08/04/19 Unknown Rx predniSONE [Deltasone] 40 mg PO QDAY #7 tablet 08/04/19 Unknown Rx Ciprofloxacin HCl [Ciprofloxacin 500 mg PO Q12HR #20 tab 11/11/20 Unknown Rx TAB] ED Physical Exam - General Limitations: No Limitations General appearance: alert, in no apparent distress - Head Head exam: Present: atraumatic, normocephalic - Eye Eye exam: Present: normal appearance, PERRL, EOMI Pupils: Present: normal accommodation - ENT ENT exam: Present: normal exam, mucous membranes moist - Neck Neck exam: Present: normal inspection, full ROM - Respiratory Respiratory exam: Present: normal lung sounds bilaterally, wheezes, chest wall tenderness. Absent: respiratory distress - Cardiovascular Cardiovascular Exam: Present: regular rate, normal rhythm, normal heart sounds. Absent: systolic murmur, diastolic murmur, rubs, gallop - GI/Abdominal GI/Abdominal exam: Present: soft, tenderness, normal bowel sounds. Absent: hyperactive bowel sounds, hypoactive bowel sounds, organomegaly, bruit, pulsatile mass - Extremities Exam Extremities exam: Present: normal inspection - Back Exam Back exam: Present: normal inspection, CVA tenderness (R). Absent: CVA tenderness (L), muscle spasm, paraspinal tenderness - Neurological Exam Neurological exam: Present: alert, oriented X3, CN II-XII intact, normal gait - Psychiatric Psychiatric exam: Present: normal affect, normal mood - Skin Skin exam: Present: warm, dry, intact, normal color. Absent: rash ED Course Vital Signs 11/11/20 11/11/20 14:18 14:22 Temperature 98.5 F Pulse Rate 60 Respiratory 16 Rate Blood Pressure 171/60 [Right] O2 Sat by Pulse 98 Oximetry ED Medical Decision Making - Lab Data Result diagrams: 11/11/20 15:56 11/11/20 15:56 Lab Results 11/11/20 11/11/20 11/11/20 Range/Units 15:56 15:56 16:03 WBC 11.2 H (4.5-11.0) K/mm3 RBC 4.29 (3.65-5.03) M/mm3 Hgb 12.6 (10.1-14.3) gm/dl Hct 38.2 (30.3-42.9) % MCV 89 (79-97) fl MCH 30 (28-32) pg MCHC 33 (30-34) % RDW 14.5 (13.2-15.2) % Plt Count 322 (140-440) K/mm3 Lymph % (Auto) 23.2 (13.4-35.0) % [place] % (Auto) 7.8 H (0.0-7.3) % Eos % (Auto) 4.1 (0.0-4.3) % Baso % (Auto) 0.8 (0.0-1.8) % Lymph # (Auto) 2.6 (1.2-5.4) K/mm3 [place] # (Auto) 0.9 H (0.0-0.8) K/mm3 Eos # (Auto) 0.5 H (0.0-0.4) K/mm3 Baso # (Auto) 0.1 (0.0-0.1) K/mm3 Seg Neutrophils % 64.1 (40.0-70.0) % Seg Neutrophils # 7.2 (1.8-7.7) K/mm3 Sodium 143 (137-145) mmol/L Potassium 3.9 (3.6-5.0) mmol/L Chloride 110.7 H (98-107) mmol/L Carbon Dioxide 19 L (22-30) mmol/L Anion Gap 17 mmol/L BUN 9 (7-17) mg/dL Creatinine 1.5 H (0.6-1.2) mg/dL Estimated GFR 43 ml/min BUN/Creatinine Ratio 6 % Glucose 87 (65-100) mg/dL Calcium 8.9 (8.4-10.2) mg/dL Total Bilirubin 1.20 (0.1-1.2) mg/dL AST 17 (5-40) units/L ALT 18 (7-56) units/L Alkaline Phosphatase 161 H (35-129) units/L Total Protein 7.2 (6.3-8.2) g/dL Albumin 3.8 L (3.9-5) g/dL Albumin/Globulin Ratio 1.1 % Lipase 37 (13-60) units/L Urine Color Straw (Yellow) Urine Turbidity Clear (Clear) Urine pH 6.0 (5.0-7.0) Ur Specific [place] 1.010 (1.003-1.030) Urine Protein <15 mg/dl (Negative) mg/dL Urine Glucose (UA) Neg (Negative) mg/dL Urine Ketones Neg (Negative) mg/dL Urine Blood Neg (Negative) Urine Nitrite Pos (Negative) Urine Bilirubin Neg (Negative) Urine Urobilinogen < 2.0 (<2.0) mg/dL Ur Leukocyte Esterase Tr (Negative) Urine WBC (Auto) 14.0 H (0.0-6.0) /HPF Urine RBC (Auto) 2.0 (0.0-6.0) /HPF U Epithel Cells (Auto) 2.0 (0-13.0) /HPF Urine Bacteria (Auto) 1+ (Negative) /HPF Urine Mucus Few /HPF - Radiology Data Radiology results: report reviewed Referring Physician:FILOMENA LAROSEPatient Name:SHANEL WILLIAMSONPatient ID:[id number] of :[id number]:FemaleAccession:[id number] Date:[id number] Status:Finalized Findings [facility] [address] [place] [address] Ultrasound Report Signed Patient: SHANEL WILLIAMSON MR#: [id number] 4 : 1960 Acct:[id number] Age/Sex: 60 / F ADM Date: 11/11/20 Loc: ED Attending Dr: Ordering Physician: EMMA BHAKTA Date of Service: 11/11/20 Procedure(s): US abdomen limited Accession Number(s): [id number] cc: EMMA BHAKTA ULTRASOUND ABDOMEN, LIMITED (RIGHT UPPER QUADRANT) INDICATION / CLINICAL INFORMATION: RUQ pain, hx of gallstones. COMPARISON: 09/18/2020. FINDINGS: PANCREAS: Visualized portion shows no significant abnormality. LIVER: No significant abnormality. The liver measures 12.3 cm in length. GALLBLADDER: Multiple echogenic, shadowing foci are seen within the gallbladder compatible with stones. BILE DUCTS: No significant abnormality. Common bile duct measures 8.5 mm. FREE FLUID: None. ADDITIONAL FINDINGS: None. IMPRESSION: 1. Uncomplicated cholelithiasis with slightly thickened gallbladder wall. If there is concern for cholecystitis, consider nuclear medicine hepatobiliary scan for further evaluation. Signer Name: Alea Smith MD Signed: 11/11/2020 4:04 PM Workstation Name: [id number] Transcribed By: SS Dictated By: ALEA SMITH Electronically Authenticated By: ALEA SMITH Signed Date/Time: 11/11/201603 DD/ 01 TD/TT: - Medical Decision Making This patient presents to the emergency department with symptoms consistent with acute uncomplicated cystitis. No systemic symptoms. Not septic. She is well- appearing. Low suspicion for acute pyelonephritis given the lack of fever, CVA tenderness, or systemic features. Low suspicion for for kidney stone or infected stone. Not in age range for and her history and and presentation are complicated. No no indications for labs or imaging at this time. Their evaluation has not identified a emergent etiology for the abdominal pain. Specifically, given the very benign exam, normal laboratory studies, and lack of significant risk factors, I have a very low suspicion for appendicitis, ischemic bowel, bowel perforation, or any other life threatening disease. I have discussed with the patient the level of uncertainty with undifferentiated abdominal pain and clearly explained the need to follow-up as noted on the discharge instructions, or return to the Emergency Department immediately if the pain worsens, develops fever, persistent and uncontrollable vomiting, or for any new symptoms or concerns. I discussed with the patient that this presentation today for abdominal pain could represent a significant risk for an acute abdominal process. Although the tests in the ED were essentially normal, there is still a possibility of a process such as appendicitis, diverticulitis, cholecystitis, ulcer, early bowel obstruction, mesenteric ischemia, kidney stone, or even kidney infection which could subsequently cause disability or . The patient understands that they must return within 24 hours for a recheck or see their physician within 24 hours for re-exam due to the possibility of significant surgical or medical process. Critical care attestation.: If time is entered above; I have spent that time in minutes in the direct care of this critically ill patient, excluding procedure time. ED Disposition Clinical Impression: UTI (urinary tract infection), Gallstones Disposition: - TO HOME OR SELFCARE Is pt being admited?: No Does the pt Need Aspirin: No Condition: Stable Instructions: Cholelithiasis, Urinary Tract Infection, Adult Additional Instructions: Please make sure you take the medication as prescribed and follow-up with lead customer service representative and primary care doctor for reevaluation and alert them of the current medications you have been prescribed according to laboratory findings your creatinine clearance is 43 based your creatinine clearance the medication has been prescribed accordingly. CrCl 30-50 mL/min: 250-500 mg PO q12hr. Referrals: PRIMARY CARE, [Primary Care Provider] - 3-5 Days (Please sure to follow-up with your primary care doctor and lead customer service representative located on [facility] that he could not quite recall the entire name be sure to give them a call for follow-up as we discussed)
== END 2020-11-11 18:51 | disposition home or self-care (01) ==
LOC: ED 14:03
DX: N39.0 Urinary tract infection, site not specified (principal); K80.20 Calculus of gallbladder without cholecystitis without obstruction; K50.90 Crohn's disease, unspecified, without complications; Z91.040 Latex allergy status
CPT/HCPCS: 36415; 76705; 80053; 81001; 83690; 85025; 87076; 87086; 87186